=== PATIENT | male | born 1975 | race Caucasian/White ===

== ENCOUNTER 2023-10-19 15:33 | Outpatient (AMB) | payer OTHER, SELFPAY ==
--- NOTE | 2023-10-19 15:37 | MHC.PC.OV ---
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 General Maintenance Mechanic Required: No Accompanied by: Self / Same As Patient Allergies No Known Allergies Allergy (Verified 10/19/23 15:59) Medication List - Last Reconciled 10/19/23 by Lenny Rahman CNP buprenorphine-naloxone 8-2 mg 0 film sublingual lorazepam 1 mg PO TID Tobacco use date assessed: 10/19/23 Dental Screening Dental Screen Date: 10/19/23 Did you have a dental visit in the last 12 months?: Yes Did you have a dental problem in the last 6 months where you did not have access to dental care?: No Was dental information given to patient?: Patient has dentist HPI HPI Comments History of Present Illness Details New patient Prior PCP:?[facility] Dr. Jose Stover; practice closed Last office visit/CPE: About a months ago Acute issue(s): h/o NILAY (used opiates/vicodin until 20 years ago) -He is on Buprenorphine-naloxone 8-2mg managed by Umesh Decker (addiction medicine) Anxiety -He is on Lorazepam 1mg TID. He notes that he has been on Lorazepam for almost 10 years. Last dose was this morning PMHx: NILAY, anxiety SurgHx: None FHx: Mom: DM Dad: cardiovascular disease, colon cancer, DM, HTN SocHx: Smokes 1 pack of cigarettes daily for the past 24 years. Does not drink alcohol. No recreational drugs He has no teeth. He had his tooth extracted on . He intends to purchase dentures He has never had a colonoscopy done He notes that he tried nicotine patch for smoking cessation but was unsuccessful. He declines medication for smoking cessation at this time. He notes i'm not ready to quit yet. [facility] Medical History (Updated 10/22/23 @ 11:02 by Lenny Rahman CNP) Anxiety Surgical History H/O oral surgery Family History Mother Diabetes Father High blood pressure Diabetes Cardiovascular disease Colon cancer Social History (Updated 10/19/23 @ 15:49 by ANNA Norris) Household Members: None Both parents involved: No Caregiver staying overnight: No Housing: House Are you a primary home health care coordinator to a significant other at home: No Do you presently have visiting nurse or other home services: No 75 years or older and lives alone: No Alcohol intake: never Patient Tobacco Use Status: Current everyday Tobacco user Cigarette Packs Per Day: 1 Cigarettes Per Day: 20 Years Smoked: 24 e-Cigarette/Vaping Use: Never Used Second Hand Smoke Exposure: No Substance Use Type: Opiates service: No Current occupational status: employed Current occupation: [employer] Cognitive needs: No Hearing needs: No Vision needs: Yes Questionnaire PHQ-9 Over the last 2 weeks, how often have you been bothered by any of the following problems? 1. Little interest or pleasure in doing things: several days 2. Feeling down, depressed, or hopeless: several days 3. Trouble falling or staying asleep, or sleeping too much: several days 4. Feeling tired or having little energy: several days 5. Poor appetite or overeating: not at all 6. Feeling bad about yourself - or that you are a failure or have let yourself or your family down: not at all 7. Trouble concentrating on things, such as reading the newspaper or watching television: not at all 8. Moving or speaking so slowly that other people could have noticed. Or the opposite - being so fidgety or restless that you have been moving around a lot more than usual: not at all 9. Thoughts that you would be better off or of hurting yourself in some way: not at all Total score: 4 Depression Screening Interpretation: Negative Depression Screening Done: Yes 30362 - PHQ-9 Billing: Yes Source: Developed by Drs. Frantz Xavier, Lyubov Vasquez, Fede Amezquita and colleagues, with an educational ernst from [employer]. Thrive Questionnaire Date Thrive assessed: 10/19/23 I am a: Patient What is your living situation today?: I have a steady place to live Within the past 12 months, did the food you bought not last and you didn't have the money to get more?: Never true Within the past 12 months, did you worry whether your food would run out before you got money to buy more?: Never true Do you have trouble paying for medicines?: No Do you have trouble getting transportation to medical appointments?: No Do you have trouble paying your heating and electricity bill?: No Do you have trouble taking care of your child, family member or friend?: No Do you have trouble with day-to-day activities such as bathing, preparing meals, shopping, managing finances, etc.?: No Are you currently unemployed and looking for a job?: No Are you interested in more education?: No Please select the resources that you would like help with: None THRIVE Score: 0 AUDIT C Alcohol Use Questionnaire (AUDIT-C) 1. How often do you have a drink containing alcohol?: Never 3. How often do you have six or more drinks on one occasion?: Never Total Score: 0 IBETH-7 AMB Questionnaire IBETH-7 Date IBETH - 7 assessed: 10/19/23 Feeling nervous, anxious, or on edge: 3 = Nearly every day Not being able to stop or control worryin = More than half the days Worrying too much about different things: 1 = Several days Trouble relaxin = More than half the days Being so restless that it is hard to sit still: 1 = Several days Becoming easily annoyed or irritable: 1 = Several days Feeling afraid as if something awful might happen: 0 = Not at all Total IBETH-7 score (0-4 normal; 5-9 mild; 10-14 moderate; 15-21 severe): 10 Source: Developed by Drs. Frantz Xavier, Lyubov Vasquez, Fede Amezquita and colleagues, with an educational ernst from [employer]. IBETH-7 Assessment Billing IBETH-7 Assessment Tool: IBETH-7 Assessment 29855 Review of Systems Const Details: Denies chills, Denies fatigue, Denies fever(s), Denies headache(s) and Denies weakness HEENT Denies change in vision, Denies dizziness, Denies headache(s), Denies hearing loss, Denies nasal congestion, Denies sinus pain, Denies sinus pressure and Denies sore throat Card Denies chest pain, Denies lightheadedness, Denies dyspnea and Denies other (palpitations) Resp Denies cough, Denies dyspnea and Denies wheezing GI Denies abdominal pain, Denies melena, Denies hematochezia, Denies change in bowel habits, Denies dyspepsia and Denies nausea Denies hematuria and Denies dysuria Musc Denies abnormal gait, Denies myalgias, Denies arthralgias, Denies numbness and Denies tingling Skin/Breast Denies rash, Denies unusual bruising and Denies wounds Neuro Denies abnormal gait, Denies dizziness, Denies headache(s), Denies memory loss, Denies numbness, Denies Sensory deficit (Neuro), Denies tingling and Denies weakness Psych Reports anxiety, Denies depression and Denies memory loss Endo Denies cold intolerance, Denies fatigue, Denies heat intolerance, Denies polydipsia and Denies polyuria Lexa/Lymph Denies easy bleeding and Denies easy bruising Aller/Immun Denies wheezing Physical exam (Primary Care) Vital Signs: Last Vital Signs Temp 97.7 F 10/19/23 15:38 Pulse 118 H 10/19/23 15:38 Resp 14 10/19/23 15:38 BP 138/80 10/19/23 16:14 Pulse Ox 99 10/19/23 15:38 Oxygen Delivery Method Room Air 10/19/23 15:38 BMI result Body Mass Index 26.2 Tobacco/Smoking Status: Tobacco use Status Tobacco use date assessed 10/19/23 10/19/23 15:49 Patient Tobacco Use Status Current everyday Tobacco 10/19/23 15:49 e-Cigarette/Vaping Use Never Used 10/19/23 15:49 PHQ-9: PHQ-9 Score PHQ-9: Total score 4 10/19/23 16:01 Depression Screening Interpretation: Negative Thrive Assessment: Date of Thrive Assessment Date Thrive assessed 10/19/23 10/19/23 15:58 Const Other: General: no acute distress, well developed, alert and awake Nutritional Appearance: well nourished Orientation/consciousness: patient oriented x3 HENMT Head: Yes normocephalic and Yes atraumatic Ears: hearing grossly normal bilaterally and TM's normal bilaterally General nose exam: Normal external nose present and Normal nares present Mouth: Normal oral and palatal mucosa present and moist mucous membranes Teeth and gingiva: Edentulous Throat: Yes oropharynx normal Eyes Pupils: Equal, round and reactive pupils present and Pupil accommodation reflex normal EOM: EOMs intact bilaterally Neck Neck: Yes normal visual inspection, Yes no lymphadenopathy and Yes trachea midline Thyroid: Thyroid normal Carotids: no bruits Lymphatic: no lymphadenopathy noted Chest Chest palpation & inspection: normal inspection of the chest Resp Effort & Inspection: normal respiratory effort Auscultation: clear to auscultation bilaterally Cardio Rate: regular rate Rhythm: regular rhythm Heart sounds: S1 normal heart sound present, S2 normal heart sound present, no gallops, no murmurs and no rubs Bruits: no abdominal aortic bruits and no carotid bruits GI Palpation (GI): No Abdominal aortic bruit present, Soft to palpation, nontender, No hepatosplenomegaly present and No Rebound tenderness present Auscultation: normal bowel sounds General: Yes no CVA tenderness Back/Spine/Pelvis Back: no CVA tenderness Cervical Spine: cervical ROM normal and No Cervical spine tenderness Thoracic/Lumbar Spine: thoraco-lumbar ROM normal, No pain with thoraco-lumbar ROM, No thoracic spinal tenderness and No lumbar spinal tenderness Skin General: warm and dry. Normal skin color. Normal skin turgor Lesions: no lesions Rashes: no rashes Trauma: no lacerations or abrasions Wounds: no wounds Nails: normal Neuro General: patient oriented x3, gait normal and CN's II-XI intact bilaterally Cranial nerves: Yes Equal, round and reactive pupils present Cognition (Neuro): normal cognition Gait exam (Neuro): Normal gait present Motor exam (neuro): 5/5 motor strength present throughout Sensory Exam: No Sensory deficit (Neuro) Deep tendon reflexes (DTR's): Right patellar reflex intensity grade: 2+ and Left patellar reflex intensity grade: 2+ Extrem General: Yes normal to inspection, No edema and No calf tenderness Psych Appearance: grossly normal Affect: normal affect Attitude: cooperative Thought process: Normal thought process present Assessment and Plan Assessment & Plan (1) Normal physical examination, routine: Code(s): Z00.00 - Encounter for general adult medical examination without abnormal findings Plan: No significant physical restrictions or limitations noted Continue current treatment regimen Healthy diet and routine exercise encouraged Continue to follow addiction medicine as planned Follow-up in 2 weeks for anxiety or return sooner with symptoms or concerns Verbalized understanding and agreed with treatment plan (2) Anxiety: Code(s): F41.9 - Anxiety disorder, unspecified Plan: PHQ-9 reveals moderate anxiety Lorazepam 1 mg t.i.d. 15 tabs was picked up from the pharmacy last month; verified by the pharmacy He brought Ativan bottles prescribed by both the ED and his PCP Instructed on the importance of first-line treatment for anxiety. He notes that he has been on multiple SSRI, SNRI, and NDRI with severe adverse reactions, including brain fog and drowsiness Will taper lorazepam. Will order lorazepam 1 mg b.i.d x 14 days Will start buspirone 10 mg twice daily. Instructed on the risks, benefits, and potential adverse reaction of the medication Routine exercise encouraged Follow-up in 2 weeks or return sooner with worsening or new symptoms Verbalized understanding and agreed with treatment plan (3) Smoking: Code(s): F17.200 - Nicotine dependence, unspecified, uncomplicated Plan: He has been smoking a pack of cigarettes daily for the past 24 years. He notes that he tried nicotine patch for smoking cessation but was unsuccessful. He declines medication for smoking cessation at this time. He notes i'm not ready to quit yet. Instructed on the health risks and complications of cigarette smoking and encouraged to quit smoking He may contact his PCP if he changes his mind on smoking cessation (4) Edentulous: Code(s): K08.109 - Complete loss of teeth, unspecified cause, unspecified class Plan: He has no teeth. He had his tooth extracted on . 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, in remission Plan: Used opiates/vicodin until 20 years ago Continue to take buprenorphine-naloxone as prescribed Continue to follow Umesh Decker (addiction medicine) (6) Colon cancer screening: Code(s): Z12.11 - Encounter for screening for malignant neoplasm of colon Plan: He has never had a colonoscopy Referred to [facility] for a colonoscopy (7) Laboratory tests ordered as part of a complete physical exam (CPE): Code(s): Z00.00 - Encounter for general adult medical examination without abnormal findings Plan: Fasting labs ordered in preparation of a complete physical exam. Advised to fast for at least 10 hours before getting labs drawn. May drink water Verbalized understanding and agreed with treatment plan. Orders: Orders Lipid Panel Today Z00.00 - Encounter for general adult medical examination without abnormal findings TSH reflex Free T4 Today Z00.00 - Encounter for general adult medical examination without abnormal findings PSA, Ultra Sensitive Today Z00.00 - Encounter for general adult medical examination without abnormal findings Complete Blood Count Auto Diff Today Z00.00 - Encounter for general adult medical examination without abnormal findings Comprehensive [place]. Panel Fast Today Z00.00 - Encounter for general adult medical examination without abnormal findings UA CC w/rflx Micro + Cult Today Z00.00 - Encounter for general adult medical examination without abnormal findings Referrals Gastroenterology Referral Z12.11 - Encounter for screening for malignant neoplasm of colon Medications: New buspirone 10 mg PO BID 30 days 60 tabs 3RF lorazepam 1 mg PO BID 14 days 28 tabs 0RF Coding Level of Care Code New Pt Level 4 (38037) New Pt Prev Care 40-64y(99926) Diagnoses Normal physical examination, routine Z00.00 Anxiety F41.9 Smoking F17.200 Edentulous K08.109 H/O opioid abuse F11.11 Colon cancer screening Z12.11 Laboratory tests ordered as part of a complete physical exam (CPE) Z00.00 Additional Codes BIETH-7 Assessment Billing - IBETH-7 Assessment Tool: IBETH-7 Assessment 01702 ([id number])
[2023-10-19 15:38] VITALS: BP 142/76; PULSE 118; RESP 14; TEMP 36.5; O2SAT 99; BMI 26.2
[2023-10-19 16:14] VITALS: BP 138/80
== END 2023-10-19 17:08 | disposition home or self-care (01) ==
PROVIDERS: Visit Provider Nurse Practitioner Family
DX: Z00.00 Encounter for general adult medical examination without abnormal findings (principal); F41.9 Anxiety disorder, unspecified; F17.200 Nicotine dependence, unspecified, uncomplicated; F11.11 Opioid abuse, in remission; K08.109 Complete loss of teeth, unspecified cause, unspecified class; Z12.11 Encounter for screening for malignant neoplasm of colon
CPT/HCPCS: 99203; 99386

== ENCOUNTER 2023-10-29 11:58 | Outpatient (REF) | payer OTHER, SELFPAY ==
[2023-10-29 14:13] LABS: MANUAL DIFF FLAG NO
[2023-10-29 14:30] LABS: Appearance Urine Clear; Color Urine Yellow; Glucose Urine UA Negative (Negative); Leukocyte Esterase Urine Negative (Negative); Nitrite Urine Negative (Negative); Urine Blood Negative (Negative); Urine Ketones Negative (Negative); Urine Protein Negative (Neg-Trace)
[2023-10-29 14:33] LABS: Basophils Absolute Auto 0.1 X10*3/uL (0.0-0.2); Basophils Percent Auto 0.4 % (0-2); Eosinophils Absolute Auto 0.2 X10*3/uL (0.0-0.4); Eosinophils Percent Auto 1.6 % (0-4); Hematocrit 41.9 % (42.0-52.0); Hemoglobin 14.4 g/dl (14.0-18.0); Imm Gran Abs Auto 0.05 X10*3/uL (0.00-0.03); Imm Gran Pct Auto 0.4 % (0.0-0.4); Lymphocytes Absolute Auto 2.4 X10*3/uL (1.2-4.9); Lymphocytes Percent Auto 19.2 % (20-40); Mean Corpuscular HGB Conc 34.4 g/dl (31.0-36.0); Mean Corpuscular Hemoglobin 30.2 pg (27.0-33.0); Mean Corpuscular Volume 87.8 fL (80.0-98.0); Mean Platelet Volume 10.8 fL (9.4-12.4); Monocytes Absolute Auto 0.6 X10*3/uL (0.1-1.2); Monocytes Percent Auto 4.7 % (2-11); Neutrophils Absolute Auto 9.2 x10*3/uL (2.0-8.3); Neutrophils Percent Auto 73.7 % (45-73); Platelet Count 343 X10*3/uL (160-400); Red Blood Count 4.77 X10*6/uL (4.60-5.80); Red Cell Distribution Width 12.3 % (11.0-16.0); White Blood Count 12.4 X10*3/uL (4.8-10.8)
[2023-10-29 15:01] LABS: Alanine Aminotransferase 25 U/L (0-40); Albumin Level 4.3 g/dL (3.5-5.0); Alkaline Phosphatase 86 U/L (39-117); Anion Gap 11 (12-20); Aspartate Amino Transferase 23 U/L (5-37); Bilirubin Total 0.3 mg/dL (0.0-1.0); Blood Urea Nitrogen 19 mg/dL (9-16); Calcium 9.3 mg/dL (8.4-10.2); Carbon Dioxide 28 mmol/L (22-29); Chloride 105 mmol/L (96-108); Cholesterol 157 mg/dL (<200); Estimated Glomerular Filt Rate > 60; Glucose Fasting 121 mg/dL (60-99); HDL Cholesterol 41 mg/dL (>40); LDL Cholesterol Calculated 107 mg/dL (<100); Potassium 4.2 mmol/L (3.3-5.1); Sodium 140 mmol/L (135-145); Total Protein 7.2 g/dL (6.5-8.0); Triglycerides 49 mg/dL (<150)
[2023-11-09 20:03] LABS: PSA, Ultra Sensitive 0.14 ng/mL
== END 2023-10-29 11:59 | disposition home or self-care (01) ==
LOC: HO.WFDLDS 11:58
PROVIDERS: Visit Provider Nurse Practitioner Family
DX: Z00.00 Encounter for general adult medical examination without abnormal findings (principal)
CPT/HCPCS: 36415; 80053; 80061; 81003; 84153; 84443; 85025

== ENCOUNTER 2023-11-02 16:32 | Outpatient (AMB) | payer OTHER, SELFPAY ==
[2023-11-02 16:35] VITALS: BP 126/70; PULSE 124; RESP 14; TEMP 36.3; O2SAT 99; BMI 26.0
--- NOTE | 2023-11-02 16:35 | MHC.PC.OV ---
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 Accompanied by: Self / Same As Patient Allergies No Known Allergies Allergy (Verified 11/02/23 16:54) Medication List - Last Reconciled 11/02/23 by Lenny Rahman CNP buprenorphine-naloxone 8-2 mg 0 film sublingual buspirone 10 mg PO BID 30 days lorazepam 1 mg PO BID 14 days Tobacco use date assessed: 10/19/23 Dental Screening Dental Screen Date: 10/19/23 HPI HPI Comments History of Present Illness Details 48-year-old male presents for anxiety and recent blood work follow-up He admits to taking his medications as prescribed without adverse reactions He reports improved anxiety symptoms since he resumed taking Ativan and started Buspirone after his last visit He notes history of tachycardia; had cardiac workup, occluding Holter monitor without significant findings. He notes history of taking propranolol No acute symptoms PFSH Medical History Anxiety Surgical History H/O oral surgery Family History Mother Diabetes Father High blood pressure Diabetes Cardiovascular disease Colon cancer Social History Household Members: None Both parents involved: No Caregiver staying overnight: No Housing: House Are you a primary intensive care unit registered nurse to a significant other at home: No Do you presently have visiting nurse or other home services: No 75 years or older and lives alone: No Alcohol intake: never Patient Tobacco Use Status: Current everyday Tobacco user Cigarette Packs Per Day: 1 Cigarettes Per Day: 20 Years Smoked: 24 e-Cigarette/Vaping Use: Never Used Second Hand Smoke Exposure: No Substance Use Type: Opiates service: No Current occupational status: employed Current occupation: [employer] Cognitive needs: No Hearing needs: No Vision needs: Yes Questionnaire PHQ-9 Over the last 2 weeks, how often have you been bothered by any of the following problems? 1. Little interest or pleasure in doing things: several days 2. Feeling down, depressed, or hopeless: not at all 3. Trouble falling or staying asleep, or sleeping too much: more than half the days 4. Feeling tired or having little energy: several days 5. Poor appetite or overeating: several days 6. Feeling bad about yourself - or that you are a failure or have let yourself or your family down: not at all 7. Trouble concentrating on things, such as reading the newspaper or watching television: not at all 8. Moving or speaking so slowly that other people could have noticed. Or the opposite - being so fidgety or restless that you have been moving around a lot more than usual: not at all 9. Thoughts that you would be better off or of hurting yourself in some way: not at all Total score: 5 Depression Screening Interpretation: Positive Depression Screening Follow-up: Existing condition and In treatment Depression Screening Done: Yes 46105 - PHQ-9 Billing: Yes Source: Developed by Drs. Frantz Xavier, Lyubov Vasquez, Fede Amezquita and colleagues, with an educational ernst from [employer]. Thrive Questionnaire Date Thrive assessed: 10/19/23 IBETH-7 AMB Questionnaire IBETH-7 Date IBETH - 7 assessed: 11/02/23 Feeling nervous, anxious, or on edge: 2 = More than half the days Not being able to stop or control worryin = Several days Worrying too much about different things: 1 = Several days Trouble relaxin = More than half the days Being so restless that it is hard to sit still: 0 = Not at all Becoming easily annoyed or irritable: 1 = Several days Feeling afraid as if something awful might happen: 0 = Not at all Total IBETH-7 score (0-4 normal; 5-9 mild; 10-14 moderate; 15-21 severe): 7 Source: Developed by Drs. Frantz Xavier, Lyubov Vasquez, Fede Amezquita and colleagues, with an educational ernst from [employer]. IBETH-7 Assessment Billing IBETH-7 Assessment Tool: IBETH-7 Assessment 50257 Review of Systems Const Details: Const Denies chills, Denies fatigue, Denies fever(s), Denies headache(s) and Denies weakness ENT Denies dizziness and Denies headache(s) Card Denies chest pain, Denies lightheadedness, Denies dyspnea and Denies other (Palpitations) Resp Denies cough, Denies dyspnea, Denies wheezing and Denies other ( shortness of breath) GI Denies abdominal pain, Denies melena, Denies hematochezia, Denies change in bowel habits, Denies dyspepsia and Denies nausea Denies hematuria and Denies dysuria Musc Denies abnormal gait, Denies myalgias, Denies arthralgias, Denies numbness and Denies tingling Skin/Breast Denies rash, Denies unusual bruising and Denies wounds Neuro Denies abnormal gait, Denies dizziness, Denies headache(s), Denies memory loss, Denies numbness, Denies Sensory deficit (Neuro), Denies tingling and Denies weakness Psych Reports anxiety, Denies depression, Denies memory loss Endo Denies cold intolerance, Denies fatigue, Denies heat intolerance, Denies polydipsia and Denies polyuria Aller/Immun Denies wheezing Physical exam (Primary Care) Vital Signs: Last Vital Signs Temp 97.3 F 11/02/23 16:35 Pulse 124 H 11/02/23 16:35 Resp 14 11/02/23 16:35 BP 126/70 11/02/23 16:35 Pulse Ox 99 11/02/23 16:35 Oxygen Delivery Method Room Air 11/02/23 16:35 BMI result Body Mass Index 26.0 Tobacco/Smoking Status: Tobacco use Status Tobacco use date assessed 10/19/23 11/02/23 16:44 Patient Tobacco Use Status Current everyday Tobacco 11/02/23 16:44 e-Cigarette/Vaping Use Never Used 11/02/23 16:44 PHQ-9: PHQ-9 Score PHQ-9: Total score 5 11/02/23 16:44 Depression Screening Interpretation: Positive Depression Screening Follow-up: Existing condition and In treatment Thrive Assessment: Date of Thrive Assessment Date Thrive assessed 10/19/23 11/02/23 16:44 Const Other: General: no acute distress and well developed Nutritional Appearance: well nourished Orientation/consciousness: patient oriented x3 [facility] Head: Yes normocephalic and Yes atraumatic Eyes General: appearance normal, both eyes and all related structures Pupils: Equal, round and reactive pupils present EOM: EOMs intact bilaterally Resp Effort & Inspection: normal respiratory effort Auscultation: clear to auscultation bilaterally Cardio Rate: regular rate Rhythm: regular rhythm Heart sounds: S1 normal heart sound present, S2 normal heart sound present, no gallops, no murmurs and no rubs GI Palpation (GI): No Abdominal aortic bruit present, Soft to palpation, nontender, No hepatosplenomegaly present and No Rebound tenderness present Auscultation: normal bowel sounds General: Yes no CVA tenderness Back/Spine/Pelvis Back: no CVA tenderness Cervical Spine: cervical ROM normal and No Cervical spine tenderness Thoracic/Lumbar Spine: thoraco-lumbar ROM normal, No pain with thoraco-lumbar ROM, No thoracic spinal tenderness and No lumbar spinal tenderness Extrem General: Yes normal to inspection, No edema and No calf tenderness Skin General: warm and dry. Normal skin color. Normal skin turgor Neuro General: patient oriented x3, gait normal and no focal neuro deficit Cranial nerves: Yes Equal, round and reactive pupils present Cognition (Neuro): normal cognition Gait exam (Neuro): Normal gait present Sensory Exam: No Sensory deficit (Neuro) Psych Appearance: grossly normal Affect: normal affect Attitude: cooperative Thought process: Normal thought process present Assessment and Plan Assessment & Plan (1) Anxiety: Code(s): F41.9 - Anxiety disorder, unspecified Plan: Improved anxiety symptoms since his last visit PHQ-9 and IBETH-7 scores revealed mild anxiety and depression Continue to take buspirone 10 mg twice daily Resting heart rate is 120. Propranolol 10 mg daily ordered to target tachycardia. Advised to take as prescribed. Instructed on the risks, benefits, and potential adverse reactions of the medication Will taper down lorazepam to 1 mg daily times 14 days Follow-up in 2 weeks or return sooner with worsening or new symptoms Verbalized understanding and agreed with treatment plan (2) Tachycardia: Code(s): R00.0 - Tachycardia, unspecified Plan: Likely due to anxiety Heart regular rate and rhythm. No murmur Plan as above (3) Elevated fasting glucose: Code(s): R73.01 - Impaired fasting glucose Plan: Recent lab results reviewed with the patient; unremarkable findings except for elevated fasting glucose, 121. He notes that he may have drank beverage with sugar prior to getting blood work done Will recheck fasting glucose Advised to fast for 10-12 hours, may drink water only, and get blood work done before his next visit Verbalized understanding and agreed with the plan Medications: New propranolol 10 mg PO .QD 30 days 30 tabs 0RF Changed From lorazepam 1 mg PO BID 14 days 28 tabs 0RF To lorazepam 1 mg PO .QD 14 days 14 tabs 0RF Coding Level of Care Code Est Pt Level 4 (63052) Complex EM visit Add On G2211 Diagnoses Anxiety F41.9 Tachycardia R00.0 Elevated fasting glucose R73.01 Additional Codes IBETH-7 Assessment Billing - IBETH-7 Assessment Tool: IBETH-7 Assessment 25369 ([id number])
[2023-11-02 17:30] VITALS: PULSE 120
== END 2023-11-02 17:19 | disposition home or self-care (01) ==
PROVIDERS: Visit Provider Nurse Practitioner Family
DX: R00.0 Tachycardia, unspecified (principal); F41.9 Anxiety disorder, unspecified; R73.01 Impaired fasting glucose
CPT/HCPCS: 99214; G2211

== ENCOUNTER 2023-11-11 12:47 | Outpatient (REF) | payer OTHER, SELFPAY ==
[2023-11-11 14:20] LABS: Glucose Fasting 93 mg/dL (60-99)
== END 2023-11-11 12:48 | disposition home or self-care (01) ==
LOC: HO.WFDLDS 12:47
PROVIDERS: Visit Provider Family Medicine
DX: R73.01 Impaired fasting glucose (principal)
CPT/HCPCS: 36415; 82947

== ENCOUNTER 2023-12-03 17:02 | Outpatient (AMB) | payer OTHER, SELFPAY ==
[2023-12-03 17:04] VITALS: BP 124/82; PULSE 83; O2SAT 97; BMI 26.0
--- NOTE | 2023-12-03 17:04 | A.OFFPC_ITS ---
Vital Signs 12/03/23 17:04 Height 5 ft 10 in Weight 181 lb 2 oz BMI 26.0 BP 124/82 Blood Pressure Location Lt brachial Position Sitting Pulse 83 Pulse Source Pulse Oximeter Pulse Oximetry (%) 97 Oxygen Delivery Method Room Air Intake Visit Reasons: F/U anxiety Intake Note: Patient is here for follow up on anxiety today, states he is feeling better Allergies No Known Allergies Allergy (Verified 12/03/23 17:20) Medication List - Last Reconciled 12/03/23 by Lenny Rahman CNP buprenorphine-naloxone 8-2 mg 0 film sublingual propranolol 10 mg PO .QD 30 days Tobacco use date assessed: 12/03/23 Dental Screening Dental Screen Date: 10/19/23 HPI HPI Comments History of Present Illness Details 48-year-old male presents for anxiety fo llow-up. He notes that his anxiety symptoms have significantly improved. He has been taking propranolol as prescribed with significant improvement of his anxiety symptoms and without adverse reactions. He stop taking buspirone because it makes me feel weird. He also reports history of adverse reactions to SSRIs. No acute symptoms at this time. [facility] Medical History Anxiety Surgical History H/O oral surgery Family History Mother Diabetes Father High blood pressure Diabetes Cardiovascular disease Colon cancer Social History Household Members: None Both parents involved: No Caregiver staying overnight: No Housing: House Are you a primary care mgr to a significant other at home: No Do you presently have visiting nurse or other home services: No 75 years or older and lives alone: No Alcohol intake: never Patient Tobacco Use Status: Current everyday Tobacco user Cigarette Packs Per Day: 1 Cigarettes Per Day: 20 Years Smoked: 24 e-Cigarette/Vaping Use: Never Used Second Hand Smoke Exposure: No Substance Use Type: Opiates service: No Current occupational status: employed Current occupation: [employer] Cognitive needs: No Hearing needs: No Vision needs: Yes Questionnaire PHQ-9 Over the last 2 weeks, how often have you been bothered by any of the following problems? 1. Little interest or pleasure in doing things: several days 2. Feeling down, depressed, or hopeless: not at all 3. Trouble falling or staying asleep, or sleeping too much: several days 4. Feeling tired or having little energy: not at all 5. Poor appetite or overeating: not at all 6. Feeling bad about yourself - or that you are a failure or have let yourself or your family down: not at all 7. Trouble concentrating on things, such as reading the newspaper or watching television: not at all 8. Moving or speaking so slowly that other people could have noticed. Or the opposite - being so fidgety or restless that you have been moving around a lot more than usual: not at all 9. Thoughts that you would be better off or of hurting yourself in some way: not at all Total score: 2 Depression Screening Interpretation: Negative Depression Screening Done: Yes Source: Developed by Drs. Frantz Xavier, Lyubov Vasquez, Fede Amezquita and colleagues, with an educational ernst from [email or web address]. Thrive Questionnaire Date Thrive assessed: 10/19/23 IBETH-7 AMB Questionnaire IBETH-7 Date IBETH - 7 assessed: 12/03/23 Feeling nervous, anxious, or on edge: 1 = Several days Not being able to stop or control worryin = Not at all Worrying too much about different things: 0 = Not at all Trouble relaxin = Several days Being so restless that it is hard to sit still: 0 = Not at all Becoming easily annoyed or irritable: 0 = Not at all Feeling afraid as if something awful might happen: 0 = Not at all Total IBETH-7 score (0-4 normal; 5-9 mild; 10-14 moderate; 15-21 severe): 2 Source: Developed by Drs. Frantz Xavier, Lyubov Vasquez, Fede Amezquita and colleagues, with an educational ernst from [email or web address]. Review of Systems Const Details: Const Denies chills, Denies fatigue, Denies fever(s), Denies headache(s) and Denies weakness ENT Denies dizziness and Denies headache(s) Card Denies chest pain, Denies lightheadedness, Denies dyspnea and Denies other (Palpitations) Resp Denies cough, Denies dyspnea, Denies wheezing and Denies other ( shortness of breath) GI Denies abdominal pain, Denies melena, Denies hematochezia, Denies change in bowel habits, Denies dyspepsia and Denies nausea Denies hematuria and Denies dysuria Musc Denies abnormal gait, Denies myalgias, Denies arthralgias, Denies numbness and Denies tingling Skin/Breast Denies rash, Denies unusual bruising and Denies wounds Neuro Denies abnormal gait, Denies dizziness, Denies headache(s), Denies memory loss, Denies numbness, Denies Sensory deficit (Neuro), Denies tingling and Denies weakness Psych Denies anxiety, Denies depression, Denies memory loss Endo Denies cold intolerance, Denies fatigue, Denies heat intolerance, Denies polydipsia and Denies polyuria Aller/Immun Denies wheezing Physical exam (Primary Care) Vital Signs: Last Vital Signs Pulse 83 12/03/23 17:04 BP 124/82 12/03/23 17:04 Oxygen Delivery Method Room Air 12/03/23 17:04 BMI result Body Mass Index 26.0 Tobacco/Smoking Status: Tobacco use Status Tobacco use date assessed 12/03/23 12/03/23 17:12 Patient Tobacco Use Status Current everyday Tobacco 12/03/23 17:12 e-Cigarette/Vaping Use Never Used 12/03/23 17:12 PHQ-9: PHQ-9 Score PHQ-9: Total score 2 12/03/23 17:23 Depression Screening Interpretation: Negative Thrive Assessment: Date of Thrive Assessment Date Thrive assessed 10/19/23 12/03/23 17:12 Const Other: General: no acute distress and well developed Nutritional Appearance: well nourished Orientation/consciousness: patient oriented x3 HENMT Head: Yes normocephalic and Yes atraumatic Eyes General: appearance normal, both eyes and all related structures Pupils: Equal, round and reactive pupils present EOM: EOMs intact bilaterally Resp Effort & Inspection: normal respiratory effort Auscultation: clear to auscultation bilaterally Cardio Rate: regular rate Rhythm: regular rhythm Heart sounds: S1 normal heart sound present, S2 normal heart sound present, no gallops, no murmurs and no rubs GI Palpation (GI): No Abdominal aortic bruit present, Soft to palpation, nontender, No hepatosplenomegaly present and No Rebound tenderness present Auscultation: normal bowel sounds General: Yes no CVA tenderness Back/Spine/Pelvis Back: no CVA tenderness Cervical Spine: cervical ROM normal and No Cervical spine tenderness Thoracic/Lumbar Spine: thoraco-lumbar ROM normal, No pain with thoraco-lumbar ROM, No thoracic spinal tenderness and No lumbar spinal tenderness Extrem General: Yes normal to inspection, No edema and No calf tenderness Skin General: warm and dry. Normal skin color. Normal skin turgor Neuro General: patient oriented x3, gait normal and no focal neuro deficit Cranial nerves: Yes Equal, round and reactive pupils present Cognition (Neuro): normal cognition Gait exam (Neuro): Normal gait present Sensory Exam: No Sensory deficit (Neuro) Psych Appearance: grossly normal Affect: normal affect Attitude: cooperative Thought process: Normal thought process present Assessment and Plan Assessment & Plan (1) Anxiety: Code(s): F41.9 - Anxiety disorder, unspecified Plan: Significant improvement on current treatment regimen No acute symptoms at this time PHQ-9 and IBETH-7 scores are normal Continue to take propranolol as prescribed Routine exercise encouraged Follow-up in 2 months or sooner with symptoms or concerns Verbalized understanding and agreed with the treatment plan Medications: Refilled propranolol 10 mg PO .QD 30 days 30 tabs 3RF Coding Level of Care Code Est Pt Level 3 (69869) Diagnoses Anxiety F41.9
== END 2023-12-03 17:44 | disposition home or self-care (01) ==
PROVIDERS: Visit Provider Nurse Practitioner Family
DX: F41.9 Anxiety disorder, unspecified (principal)
CPT/HCPCS: 99213